=== PATIENT | male | born 1955 | race American Indian/Alaskan Native ===

== ENCOUNTER 2017-04-29 17:05 | Inpatient (IN) | payer OTHER ==
[2017-04-29] MEDS ORDERED: NACL 0.9% 500 ML 500 ML IV ONE (17:18)
[2017-04-29] MEDS ORDERED: TYLENOL PO STA (17:18)
[2017-04-29 17:59] LABS: Basophils % (Auto) 0.6 % (0.0-1.8); Eosinophils % (Auto) 0.1 % (0.0-4.3); Hematocrit 42.9 % (35.5-45.6); Hemoglobin 14.5 gm/dl (11.8-15.2); Mean Corpuscular HGB Conc 34 % (32-34); Mean Corpuscular Hemoglobin 25 pg (28-32); Mean Corpuscular Volume 75 fl (84-94); Platelet Count 114 K/mm3 (140-440); Red Blood Count 5.71 M/mm3 (3.65-5.03); Red Cell Distribution Width 22.2 % (13.2-15.2); White Blood Count 6.1 K/mm3 (4.5-11.0)
[2017-04-29 18:06] LABS: Bilirubin,Urine NEG (Negative); Blood,Urine MOD (Negative); Ketones,Urine NEG (Negative); Leukocyte Esterase,Urine NEG (Negative); Mucus,Urine FEW /HPF; Nitrite,Urine NEG (Negative)
[2017-04-29 18:08] LABS: INR 1.21 (0.87-1.13)
[2017-04-29 18:23] LABS: Anion Gap TNR mmol/L; Carbon Dioxide TNR mmol/L (22-30); Chloride TNR mmol/L (98-107); Potassium TNR mmol/L (3.6-5.0); Sodium TNR mmol/L (137-145)
[2017-04-29 18:24] LABS: BUN/Creatinine Ratio TNR; Blood Urea Nitrogen TNR mg/dL (9-20); Calcium TNR mg/dL (8.4-10.2); Glucose TNR mg/dL (75-100)
[2017-04-29 18:25] LABS: Alanine Aminotransferase TNR units/L (7-56); Albumin TNR g/dL (3.9-5); Albumin/Globulin Ratio TNR %; Alkaline Phosphatase TNR units/L (35-129); Bilirubin,Total TNR mg/dL (0.1-1.2); Total Protein TNR g/dL (6.3-8.2)
[2017-04-29] MEDS ORDERED: NACL 0.9% 1000 ML 1,000 ML ONE ×2 (18:29→22:14)
[2017-04-29 19:35] LABS: Sodium TNR mmol/L (137-145)
[2017-04-29 19:36] LABS: Anion Gap TNR mmol/L; Blood Urea Nitrogen TNR mg/dL (9-20); Carbon Dioxide TNR mmol/L (22-30); Chloride TNR mmol/L (98-107); Potassium TNR mmol/L (3.6-5.0)
[2017-04-29 19:39] LABS: BUN/Creatinine Ratio TNR; Glucose TNR mg/dL (75-100)
[2017-04-29 19:43] LABS: Calcium TNR mg/dL (8.4-10.2)
[2017-04-29 19:44] LABS: Alanine Aminotransferase TNR units/L (7-56); Bilirubin,Total TNR mg/dL (0.1-1.2)
[2017-04-29 19:45] LABS: Albumin TNR g/dL (3.9-5); Albumin/Globulin Ratio TNR %; Alkaline Phosphatase TNR units/L (35-129); Total Protein TNR g/dL (6.3-8.2)
[2017-04-29 21:04] LABS: Albumin 2.6 g/dL (3.9-5); Albumin/Globulin Ratio 0.8 %; Bilirubin,Total 0.7 mg/dL (0.1-1.2); Calcium 7.5 mg/dL (8.4-10.2); Chloride 103.9 mmol/L (98-107); Total Protein 5.7 g/dL (6.3-8.2)
--- NOTE | 2017-04-29 22:04 | Emergency Department Report ---
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 Associated Symptoms: diaphoresis, muscle aches, weakness ED Review of Systems ROS: Stated complaint: HIGH FEVER Other details as noted in HPI Constitutional: chills, fever, malaise Eyes: denies: eye pain, eye discharge, vision change ENT: denies: ear pain, throat pain Respiratory: denies: cough, shortness of breath, wheezing Cardiovascular: denies: chest pain, palpitations Endocrine: no symptoms reported Gastrointestinal: denies: abdominal pain, nausea, diarrhea Genitourinary: denies: urgency, dysuria Musculoskeletal: denies: back pain, joint swelling, arthralgia Skin: denies: rash, lesions Neurological: denies: headache, weakness, paresthesias Psychiatric: denies: anxiety, depression Hematological/Lymphatic: denies: easy bleeding, easy bruising ED Past Medical Hx - Past Medical History Previous Medical History?: Yes Hx Hypertension: Yes Hx CVA: No Hx Heart Attack/AMI: No Hx Congestive Heart Failure: No Hx Diabetes: No Hx Deep Vein Thrombosis: No Hx Pulmonary Embolism: No Hx GERD: No Hx Liver Disease: No Hx Renal Disease: No Hx of Cancer: No Hx Sickle Cell Disease: No Hx Arthritis: No Hx Headaches / Migraines: No Hx Seizures: No Hx Kidney Stones: No Hx Psychiatric Treatment: No Hx Asthma: No Hx COPD: No - Surgical History Past Surgical History?: No - Social History Smoking Status: Never Smoker ED Physical Exam - General Limitations: No Limitations General appearance: alert, in no apparent distress - Head Head exam: Present: atraumatic, normocephalic - Eye Eye exam: Present: normal appearance - ENT ENT exam: Present: mucous membranes moist - Neck Neck exam: Present: normal inspection - Respiratory Respiratory exam: Present: normal lung sounds bilaterally. Absent: respiratory distress - Cardiovascular Cardiovascular Exam: Present: regular rate, normal rhythm, tachycardia. Absent : systolic murmur, diastolic murmur, rubs, gallop - GI/Abdominal GI/Abdominal exam: Present: soft, normal bowel sounds - Rectal Rectal exam: Present: deferred - Extremities Exam Extremities exam: Present: normal inspection - Back Exam Back exam: Present: normal inspection - Neurological Exam Neurological exam: Present: alert, oriented X3 - Psychiatric Psychiatric exam: Present: normal affect, normal mood - Skin Skin exam: Present: warm, dry, intact, normal color. Absent: rash ED Course Vital Signs 04/29/17 04/29/17 04/29/17 17:12 17:15 17:16 Temperature 103 F H Pulse Rate 120 H 126 H Respiratory 50 H 22 Rate Blood Pressure 120/70 126/62 O2 Sat by Pulse 97 96 96 Oximetry 04/29/17 04/29/17 04/29/17 17:31 17:33 17:45 Temperature Pulse Rate 118 H 126 H 117 H Respiratory 49 H 46 H Rate Blood Pressure 120/70 120/70 O2 Sat by Pulse 96 Oximetry 04/29/17 04/29/17 04/29/17 18:00 18:15 18:18 Temperature 100.3 F H Pulse Rate 108 H 107 H Respiratory 47 H 45 H Rate Blood Pressure 113/77 O2 Sat by Pulse Oximetry 04/29/17 04/29/17 04/29/17 18:31 18:45 19:01 Temperature Pulse Rate 104 H 100 H 97 H Respiratory 44 H 24 37 H Rate Blood Pressure O2 Sat by Pulse Oximetry 04/29/17 04/29/17 04/29/17 19:15 19:31 19:45 Temperature Pulse Rate 90 91 H 92 H Respiratory 29 H 27 H 30 H Rate Blood Pressure O2 Sat by Pulse 96 94 95 Oximetry 04/29/17 04/29/17 04/29/17 19:53 20:01 20:19 Temperature Pulse Rate 94 H Respiratory 26 H 18 Rate Blood Pressure O2 Sat by Pulse 97 96 97 Oximetry - Reevaluation(s) Reevaluation #1: 04/29/17 22:03 Patient came in tachycardic and febrile. Has improved temperature and HR. Lactic acid was 3.3 and appeared sick. - Consultations Consultation #1: 04/29/17 22:09 Dr. Benavidez consulted to admit patient to hospitalist service. ED Medical Decision Making - Lab Data Result diagrams: 04/29/17 17:39 04/29/17 20:12 - EKG Data EKG shows normal: sinus rhythm, QRS complexes (Normal QRS), ST-T waves (No ST segment changes.) Rate: tachycardia - EKG Data When compared to previous EKG there are: previous EKG unavailable Interpretation: normal EKG - Radiology Data Radiology results: pending - Medical Decision Making Patient improved with HR and fever but has elevated lactic acid and last BP was in the 90s/40s. We are giving more fluids. Will admit patient as he appears sick. His parasitemia is 2%. Critical care attestation.: If time is entered above; I have spent that time in minutes in the direct care of this critically ill patient, excluding procedure time. ED Disposition Clinical Impression: Parasite infection, Sepsis associated hypotension, Malaria Disposition: OP ADMIT IP TO THIS HOSP Is pt being admited?: Yes Does the pt Need Aspirin: No Condition: Stable Time of Disposition: 22:09
[2017-04-29] MEDS ORDERED: NACL 0.9% 1000 ML 1,000 ML IV ONE (22:23)
[2017-04-29] MEDS ORDERED: ZOFRAN IV PRN (23:44)
[2017-04-29] MEDS ORDERED: TYLENOL PO PRN (23:45)
--- NOTE | 2017-04-30 05:51 | History and Physical Report ---
CHIEF COMPLAINT: Fever. HISTORY OF PRESENT ILLNESS: The patient is a 61-year-old male who recently came back from [facility]. He said he has been having fever that occurs intermittently. There is also associated history of muscle aches, weakness, diaphoresis. The patient's fever was as high as 102 degrees Fahrenheit. There is no history of nausea, vomiting and there was also no history of headache, cough, shortness of breath or chest pain. PAST MEDICAL HISTORY: Pertinent for hypertension. FAMILY HISTORY: Noncontributory. SOCIAL HISTORY: The patient does not smoke, does not drink alcohol and does not use illicit drugs. MEDICATIONS: The patient's home medications are not known. ALLERGIES: There are no known drug allergies. REVIEW OF SYSTEMS: CONSTITUTIONAL: There is fever. There is chills and there is diaphoresis. HEENT: There is no headache or sore throat. CARDIOVASCULAR SYSTEM: There is no chest pain, orthopnea. RESPIRATORY: There is no shortness of breath or cough. GASTROINTESTINAL SYSTEM: There is no nausea, no vomiting, no abdominal pain, diarrhea or constipation. NEUROLOGICAL SYSTEM: There is no numbness, no dizziness, no altered mental status. MUSCULOSKELETAL SYSTEM: There is no joint pain or swelling. DERMATOLOGICAL SYSTEM: Reveal no skin rash or itching. GENITOURINARY SYSTEM: Showed no dysuria, hematuria or flank pain. Rest of the system review is normal. PHYSICAL EXAMINATION: GENERAL: At the time of exam, the patient was found to be alert, oriented x 3 and not in acute distress. VITAL SIGNS: The patient's vital signs show blood pressure of 116/51 with O2 sat of 98%, the patient's temperature was found to be 103 degrees Fahrenheit with pulse of 126. HEENT: Shows pupils to be equal, round, reactive to light and accommodation. Extraocular muscles are intact. NECK: Supple with no JVD or carotid bruit. CARDIOVASCULAR SYSTEM: Show first and second heart sounds with no gallops or murmur. RESPIRATORY SYSTEM: Show good air entry on both sides of the lung with no abnormal breath sounds. GASTROINTESTINAL SYSTEM: Show abdomen to be full, soft, nontender with no organomegaly or rigidity. NEUROLOGICAL: Shows no focal deficit. MUSCULOSKELETAL: Show no joint swelling or tenderness. DERMATOLOGICAL: Showing no skin rash. GENITOURINARY: Showing no costovertebral angle tenderness. PERTINENT LABORATORY DATA AND IMAGING STUDIES: The patient has a chest x-ray done that shows right hilar opacity. The patient's lab results shows a CBC with normal white count, normal hemoglobin and normal hematocrit with low platelet of 114. CBC differential showed elevated segmented neutrophils of 80.7% with no significant band. The patient's blood screening was noted to have shown some plasmodium organism highly suspicious for malaria. The patient's chemistry shows low CO2 of 20, elevated lactic acid of 3.3 with repeat lactic acid coming down to normal value of 1.9. Calcium level was low with a value of 7.5 with correspondingly low albumin of 2.6. Urinalysis was unremarkable. DIAGNOSES: 1. Systemic inflammatory response syndrome. 2. Malaria. PLAN: The patient will be admitted to medical floor on telemetry and will be on continuous cardiac monitoring. The patient will be on Tylenol 650 mg every 4 hours for fever and headache and will be on atovaquone/proguanil or Malarone one combined tablet daily for 3 days. The patient will also be on ceftriaxone 1 gram daily and will be given as treatment for systemic inflammatory response syndrome. DVT prophylaxis will be provided by heparin 5000 units subQ q. 12 hours. The patient will be on IV normal saline at 150 mL an hour and will be on IV Zofran 4 mg every 8 hours as needed for nausea and vomiting. The patient's home medications will be reconciled and started when they are known. JOB# [id number] OCN/LELO MTDYousuf
--- NOTE | 2017-04-30 09:05 | XRay Report ---
AP CHEST: HISTORY: Sepsis AP view of the chest demonstrates a normal mediastinal and cardiac contour with clear lungs and normal bony and soft tissue structures. IMPRESSION: Unremarkable AP chest.
[2017-04-30] MEDS: ROCEPHIN/NS 1 GM/50 ML 1 GM/50 ML BAG IV SCH (10:50)
[2017-04-30] MEDS: NACL 0.9% 1000 ML 1,000 ML IV SCH ×2 (10:50→21:35)
[2017-04-30] MEDS: HEPARIN SUB-Q SCH ×2 (10:51→21:35)
[2017-04-30] MEDS: MALARONE PO SCH (12:24)
--- NOTE | 2017-04-30 20:16 | Progress Note ---
Assessment and Plan - SIIR: Fever right was an elevated lactic acid level. No cough or no nasal congestion. He came back from a recent trip to [facility]. Did not take any malaria prophylaxis prior to problem - Malaria: On Atovaquone/Proguanil 4 tabsqd x 3 days. Iv hydration. F/u with blood smear DVT: PPx with Subjective Date of service: 04/30/17 Principal diagnosis: SIIRS, Malaria Interval history: Intermittent fever with rigors. No nausea no vomiting Objective - Constitutional Vitals: Vital Signs - 12hr 04/30/17 20:07 Temperature 100.4 F H Pulse Rate 87 Respiratory 18 Rate Blood Pressure 127/65 [Right] General appearance: Present: no acute distress, well-nourished - EENT Eyes: PERRL, EOM intact - Neck Neck: supple, normal ROM - Respiratory Respiratory: bilateral: CTA - Cardiovascular Rhythm: regular Heart Sounds: Present: S1 & S2. Absent: gallop, rub Extremities: pulses intact, No edema, normal color, Full ROM - Gastrointestinal General gastrointestinal: Present: soft, non-tender, non-distended, normal bowel sounds - Integumentary Integumentary: clear, warm, dry - Musculoskeletal Musculoskeletal: 1, strength equal bilaterally - Neurologic Neurologic: moves all extremities - Psychiatric Psychiatric: memory intact, appropriate mood/affect, intact judgment & insight - Labs CBC & Chem 7: 04/29/17 17:39 04/29/17 20:12
[2017-05-01] MEDS: D5/0.45NS 1,000 ML IV SCH ×2 (04:12→21:52)
[2017-05-01] MEDS: ROCEPHIN/NS 1 GM/50 ML 1 GM/50 ML BAG IV SCH (10:53)
--- NOTE | 2017-05-01 10:53 | Consultation ---
History of Present Illness - Reason for Consult Consult date: 05/01/17 fever in the returning traveler Requesting physician: AZAR ALDRIDGE - History of Present Illness 61 years old male with history of admitted on 04/29/2017 due to7-day history of fever and chills. Patient came from [facility] on 04/28/2017. Patient goes every year to [facility] to visit family. Patient stayed 2 weeks in [facility]. Patient did not take any malaria prophylaxis. Patient reports that fever started 2 days before coming back to [facility]. Fever is daily associated with chills/rigors. Patient denies headaches, upper respiratory symptoms, cough , shortness of breath. Patient denies nausea, vomiting or diarrhea. In the emergency room, initial temperature was 103, heart rate 120, respiration 50, blood pressure 120/70. Initial white count was 6.1. Hemoglobin 14.4. Platelets 114. Creatinine 1.5. Lactic acid 3.3. UA was negative. Malaria smear was positive 2% Plasmodium falciparum. Microbiology: Blood cultures: 04/29 ngtd Urine cultures: 04/29 neg Malaria smear: 04/29 Plasmodium falciparum 2% Current Antimicrobials: malarone 04/30 ceftriaxone 04/30 Past History Past Medical History: No medical history Past Surgical History: No surgical history Social history: , alcohol abuse. denies: smoking, prescription drug abuse, IV drug use Family history: no significant family history Medications and Allergies Allergies Allergy/AdvReac Type Severity Reaction Status Date / Time No Known Allergies Allergy Unverified 04/29/17 17:18 Home Medications Medication Instructions Recorded Confirmed Last Taken Type No Known Home Medications [No 05/01/17 05/01/17 Unknown History Reported Home Medications] Active Meds: Active Medications Acetaminophen (Tylenol) 650 mg PO Q4H PRN PRN Reason: Fever Last Admin: 04/30/17 18:56 Dose: 650 mg Atovaquone/Proguanil (Malarone 250-100 Mg (Nf)) 4 each PO QDAY SMOOTH Stop: 05/02/17 10:01 Last Admin: 04/30/17 12:24 Dose: 4 each Heparin Sodium (Porcine) (Heparin) 5,000 unit SUB-Q Q12HR SMOOTH Last Admin: 04/30/17 21:35 Dose: 5,000 unit Ceftriaxone Sodium (Rocephin/Ns 1 Gm/50 Ml) 1 gm in 50 mls @ 100 mls/hr IV Q24HR SMOOTH PRN Reason: Protocol Last Admin: 04/30/17 10:50 Dose: 100 mls/hr Sodium Chloride (Nacl 0.9% 1000 Ml) 1,000 mls @ 150 mls/hr IV DIRECT SMOOTH Last Admin: 04/30/17 21:35 Dose: 150 mls/hr Dextrose/Sodium Chloride (D5/0.45ns) 1,000 mls @ 150 mls/hr IV DIRECT SMOOTH Last Admin: 05/01/17 04:12 Dose: 150 mls/hr Ondansetron HCl (Zofran) 4 mg IV Q8H PRN PRN Reason: Nausea And Vomiting Review of Systems All systems: negative (fever, chills, rigors) Physical Examination - Physical Exam Narrative exam: General appearance: Alert in NAD, conversant Eyes: anicteric sclerae, moist conjunctivae; no lid-lag; PERRLA HENT: Atraumatic; oropharynx clear with moist mucous membranes and no mucosal ulcerations/no oral thrush; normal hard and soft palate. Normal external ears. Neck: Trachea midline; supple, no thyromegaly or lymphadenopathy Lungs: CTA, with normal respiratory effort and no intercostal retractions CV: RRR, no murmurs Abdomen: Soft, non-tender; no masses or hepatosplenomegaly Extremities: No peripheral edema or extremity lymphadenopathy Skin: Normal temperature, turgor and texture; no rash, ulcers or subcutaneous nodules Psych: Appropriate affect, alert and oriented to person, place and time. Neuro: alert and oriented x 3. Moving all extermities Lines: No CVL / PICC - Constitutional Vitals: Vital Signs Temp Pulse Resp BP Pulse Ox 100.2 F H 82 16 119/75 98 05/01/17 04:46 05/01/17 04:46 05/01/17 04:46 05/01/17 04:46 05/01/17 04:46 Temperature -Last 24 Hours Temperature 100.2 F Temperature 98.7 F Temperature 100.4 F Temperature 100.4 F Temperature 101.1 F Results - Labs CBC & Chem 7: 04/29/17 17:39 04/29/17 20:12 Assessment and Plan Assessment: 1) Sepsis: Present on admission, manifested by fever, tachycardia, increased lactate. Etiology - malaria. 2) Uncomplicated Plasmodium falciparum malaria: patient came from [facility] on 04/28/17 after 2 weeks. He did not take malaria prophylaxis. -Malaria smear + 2% for P. falciparum 3) Low platelets: from malaria Plan: -follow-up blood cultures -continue malarone (atovaquone/proguanil) 4 tab (1000/400 mg) PO daily for 3 days -daily malaria smear until clears -IV fluids -educated about compliance of malaria prophylaxis when traveling to [place]. Thank you Dr Aldridge for your consultation, will follow up with you. Meggan Stoll MD Infectious Diseases Specialist [facility] [place] ([facility] M [phone] O [phone]
[2017-05-01] MEDS: HEPARIN SUB-Q SCH ×2 (11:00→21:52)
[2017-05-01] MEDS ORDERED: CITRATE OF MAGNESIA PO ONE (12:45)
--- NOTE | 2017-05-01 17:58 | Progress Note ---
Assessment and Plan Assessment and Plan 1. SIRS: Fever with elevated lactic acid level. Patient came back from a recent trip to [facility] and did not take any malaria prophylaxis prior. Blood smear positive for plasmodium falciparum. 2. Malaria-Plasmodium Falciparum: On Atovaquone/Proquanil 4 tabs qd x 3 days. IV hydration. ID following. 3. UTI: On IV Rocephin. 4. DVT PPx with on Heparin. Subjective Date of service: 05/01/17 Principal diagnosis: SIIRS, Malaria Interval history: Intermittent fever with rigors. No N/V. Objective - Constitutional Vitals: Vital Signs - 12hr 05/01/17 09:32 Temperature 101.3 F H Pulse Rate 92 H Respiratory 20 Rate Blood Pressure 133/70 O2 Sat by Pulse 99 Oximetry General appearance: Present: no acute distress, well-nourished - EENT Eyes: PERRL, EOM intact ENT: hearing intact, clear oral mucosa Ears: bilateral: normal - Neck Neck: supple, normal ROM - Respiratory Respiratory effort: normal Respiratory: bilateral: CTA - Breasts Breasts: normal - Cardiovascular Rhythm: regular Heart Sounds: Present: S1 & S2. Absent: gallop, rub Extremities: pulses intact, No edema, normal color, Full ROM - Gastrointestinal General gastrointestinal: Present: soft, non-tender, non-distended, normal bowel sounds - Genitourinary Male genitourinary: normal - Integumentary Integumentary: clear, warm, dry - Musculoskeletal Musculoskeletal: 1, strength equal bilaterally - Neurologic Neurologic: moves all extremities - Psychiatric Psychiatric: memory intact, appropriate mood/affect, intact judgment & insight - Labs CBC & Chem 7: 04/29/17 17:39 04/29/17 20:12
[2017-05-01] MEDS ORDERED: ATIVAN IV PRN (18:27)
[2017-05-01] MEDS: MALARONE PO SCH (22:39)
[2017-05-02 06:26] LABS: Hematocrit 33.9 % (35.5-45.6); Hemoglobin 11.6 gm/dl (11.8-15.2); Mean Corpuscular HGB Conc 34 % (32-34); Mean Corpuscular Volume 75 fl (84-94); Red Blood Count 4.55 M/mm3 (3.65-5.03); White Blood Count 4.8 K/mm3 (4.5-11.0)
[2017-05-02 06:27] LABS: Mean Corpuscular Hemoglobin 25 pg (28-32); Platelet Count 96 K/mm3 (140-440); Red Cell Distribution Width 22.4 % (13.2-15.2)
[2017-05-02 06:36] LABS: Alanine Aminotransferase 36 units/L (7-56); Albumin 2.5 g/dL (3.9-5); Albumin/Globulin Ratio 0.7 %; Alkaline Phosphatase 55 units/L (35-129); Anion Gap 14 mmol/L; BUN/Creatinine Ratio 8; Blood Urea Nitrogen 9 mg/dL (9-20); Calcium 7.8 mg/dL (8.4-10.2); Carbon Dioxide 23 mmol/L (22-30); Chloride 102.8 mmol/L (98-107); Glucose 113 mg/dL (75-100); Potassium 3.8 mmol/L (3.6-5.0); Sodium 136 mmol/L (137-145)
[2017-05-02 07:53] LABS: Blastocytes % (Manual) 0 %
[2017-05-02 07:54] LABS: Anisocytosis 1+; Basophils % (Manual) 0 % (0.0-1.8); Eosinophils % (Manual) 0 % (0.0-4.3); Hypochromasia 1+; Platelet Estimate Consistent w Auto; Target Cells 1+
[2017-05-02 07:55] LABS: Diff Status Complete
--- NOTE | 2017-05-02 11:07 | Progress Note ---
Assessment and Plan Assessment: 1) Sepsis: Present on admission, manifested by fever, tachycardia, increased lactate. Etiology - malaria. 2) Uncomplicated Plasmodium falciparum malaria: patient came from [facility] on 04/28/17 after 2 weeks. He did not take malaria prophylaxis. -Malaria smear + 2% for P. falciparum 3) Low platelets: from malaria Plan: -parasite smear today -continue malarone (atovaquone/proguanil) 4 tab (1000/400 mg) PO daily for 3 days -educated about compliance of malaria prophylaxis when traveling to [place]. -if smear is negative ok to d/c home I am signing off Thank you Dr Cline for your consultation, will follow up with you. Meggan Stoll MD Infectious Diseases Specialist [facility] ([facility] M [phone] O [phone] Subjective Date of service: 05/02/17 Principal diagnosis: SIIRS, Malaria Interval history: Feels remarkably much better, no rigors. fever trending down. Microbiology: Blood cultures: 04/29 ngtd Urine cultures: 04/29 neg Malaria smear: 04/29 Plasmodium falciparum 2% Current Antimicrobials: malarone 04/30 ceftriaxone 04/30 Objective - Exam Narrative Exam: General appearance: Alert in NAD, conversant Eyes: anicteric sclerae, moist conjunctivae; no lid-lag; PERRLA HENT: Atraumatic; oropharynx clear with moist mucous membranes and no mucosal ulcerations/no oral thrush; normal hard and soft palate. Normal external ears. Neck: Trachea midline; supple, no thyromegaly or lymphadenopathy Lungs: CTA, with normal respiratory effort and no intercostal retractions CV: RRR, no murmurs Abdomen: Soft, non-tender; no masses or hepatosplenomegaly Extremities: No peripheral edema or extremity lymphadenopathy Skin: Normal temperature, turgor and texture; no rash, ulcers or subcutaneous nodules Psych: Appropriate affect, alert and oriented to person, place and time. Neuro: alert and oriented x 3. Moving all extermities Lines: No CVL / PICC - Constitutional Vitals: Vital Signs Temp Pulse Resp BP Pulse Ox 98.6 F 68 16 126/78 98 05/02/17 07:33 05/02/17 07:33 05/02/17 07:33 05/02/17 07:33 05/02/17 07:33 Temperature -Last 24 Hours Temperature 98.6 F Temperature 99.1 F Temperature 98.4 F Temperature 101.1 F Temperature 101.1 F - Labs CBC & Chem 7: 05/02/17 05:51 05/02/17 05:51 Labs: Abnormal lab results 05/02/17 05/02/17 Range/Units 05:51 05:51 Hgb 11.6 L (11.8-15.2) gm/dl Hct 33.9 L D (35.5-45.6) % MCV 75 L (84-94) fl MCH 25 L (28-32) pg RDW 22.4 H (13.2-15.2) % Plt Count 96 L (140-440) K/mm3 Monocytes % (Manual) 17.0 H (0.0-7.3) % Lymphocytes # (Manual) 1.0 L (1.2-5.4) K/mm3 Sodium 136 L (137-145) mmol/L Glucose 113 H (75-100) mg/dL Calcium 7.8 L (8.4-10.2) mg/dL Phosphorus 1.70 L (2.5-4.5) mg/dL AST 65 H (5-40) units/L Total Protein 6.0 L (6.3-8.2) g/dL Albumin 2.5 L (3.9-5) g/dL
[2017-05-02 11:22] VITALS: BP 139/75
--- NOTE | 2017-05-02 13:18 | Discharge Summary ---
Providers - Providers Date of Admission: 04/29/17 23:41 Attending physician: CHRISTINE PARADA MD 04/30/17 20:21 Consult to Physician [CONS] Routine Consulting Provider: ANGELA ZHOU Reason For Exam: Malaria Place consult to:: Norris Was contact made?: No Primary care physician: HEARING HEALTH TECHNICIAN Hospitalization Reason for admission: fever Condition: Stable Hospital course: Patient is a 61 year old male hx of HTN presenting with Fever after returning from [facility] area. The patient's fever was as high as 102. I was diagnosed with malaria confirmed by microbiology. Patient was started on Malarone 4 tabs daily 3 days of IV hydration. Physiatric infection the patient was also placed on Rocephin. Prior to discharge the patient had him on Aranesp now 0.05 which is less than the 2% when he came back. He is to complete the Malarone a follow-up with ID outpatient. 1. Sepsis secondary to malaria Blood smear positive for plasmodium falciparum. 2. Malaria-Plasmodium Falciparum 3. UTI 4. Low platelets: from malaria Disposition: DC- TO HOME OR SELFCARE Time spent for discharge: 35 MINS Core Measure Documentation - Palliative Care Palliative Care/ Comfort Measures: Not Applicable - Core Measures Any of the following diagnoses?: none - VTE Discharge Requirements Deep Vein Thrombosis/Pulmonary Embolism Present on Admission: No Exam - Physical Exam Narrative exam: VITAL SIGNS: Reviewed. GENERAL: The patient appeared well nourished and normally developed. Vital signs as documented. HEAD: No signs of head trauma. EYES: Pupils are equal. Extraocular motions intact. EARS: Hearing grossly intact. MOUTH: Oropharynx is normal. NECK: No adenopathy, no JVD. CHEST: Chest with clear breath sounds bilaterally. No wheezes, rales, or rhonchi. CARDIAC: Regular rate and rhythm. S1 and S2, without murmurs, gallops, or rubs. VASCULAR: No Edema. Peripheral pulses normal and equal in all extremities. ABDOMEN: Soft, without detectable tenderness. No sign of distention. No rebound or guarding, and no masses palpated. Bowel Sounds normal. MUSCULOSKELETAL: Good range of motion of all major joints. Extremities without clubbing, cyanosis or edema. NEUROLOGIC EXAM: Alert and oriented x 3. No focal sensory or strength deficits. Speech normal. Follows commands. PSYCHIATRIC: Mood normal. SKIN: No rash or lesions. - Constitutional Vitals: Temp Pulse Resp BP Pulse Ox 98.5 F 67 18 139/75 99 05/02/17 11:19 05/02/17 11:19 05/02/17 11:19 05/02/17 11:19 05/02/17 11:19 Plan Activity: no restrictions, advance as tolerated, fall precautions Diet: regular Special Instructions: record daily weights Follow up with: PRIMARY MD PANFILO [Primary Care Provider] - 7 Days ANGELA ZHOU MD [Staff Physician] - 7 Days Prescriptions: Atovaquone/Proguanil HCl [Malarone 250-100 mg] 4 each PO DAILY #1 tab
== END 2017-05-02 15:35 | disposition home or self-care (01) | DRG 871 ==
LOC: ED 17:05 → 4A 23:41
PROVIDERS: ADMIT Internal Medicine; ATTEND Internal Medicine
DX: A41.9 Sepsis, unspecified organism (principal); E43 Unspecified severe protein-calorie malnutrition; B50.9 Plasmodium falciparum malaria, unspecified; N39.0 Urinary tract infection, site not specified; E86.0 Dehydration; Z68.32 Body mass index [BMI] 32.0-32.9, adult
CPT/HCPCS: 36415; 71010; 80053; 81001; 82140; 82805; 83735; 84100; 85007; 85025; 85610; 87040; 87086; 87207; 93005; 93010; 96360; J0696; J1644; J7030; J7040

== ENCOUNTER 2017-07-10 12:13 | Emergency (ER) | payer OTHER ==
[2017-07-10 13:18] LABS: Anion Gap 18 mmol/L; BUN/Creatinine Ratio 15; Blood Urea Nitrogen 16 mg/dL (9-20); Calcium 8.6 mg/dL (8.4-10.2); Carbon Dioxide 23 mmol/L (22-30); Glucose 130 mg/dL (75-100); Potassium 4.1 mmol/L (3.6-5.0); Sodium 138 mmol/L (137-145)
[2017-07-10 13:18] LABS: Basophils % (Auto) 0.5 % (0.0-1.8); Eosinophils % (Auto) 2.5 % (0.0-4.3); Hematocrit 45.5 % (35.5-45.6); Hemoglobin 15.2 gm/dl (11.8-15.2); Mean Corpuscular HGB Conc 34 % (32-34); Mean Corpuscular Hemoglobin 28 pg (28-32); Mean Corpuscular Volume 83 fl (84-94); Platelet Count 267 K/mm3 (140-440); Red Blood Count 5.47 M/mm3 (3.65-5.03); Red Cell Distribution Width 17.4 % (13.2-15.2); White Blood Count 4.8 K/mm3 (4.5-11.0)
[2017-07-10 13:49] VITALS: BP 122/75
[2017-07-10] MEDS ORDERED: NACL 0.9% 1000 ML 1,000 ML ONE (14:43)
--- NOTE | 2017-07-10 16:57 | Emergency Department Report ---
ED Chest Pain HPI - General Chief Complaint: Chest Pain Stated Complaint: CP Time Seen by Provider: 07/10/17 16:24 Source: patient Mode of arrival: Ambulatory Limitations: No Limitations - History of Present Illness Initial Comments: This is a 61-year-old -[place] male presents to the emergency department with complaint of having a rapid heartbeat and palpitations for a very short amount of time that occurred 3 weeks ago. He saw his physician, Dr. Mahajan, on Friday and says that he was told that everything looked fine with this EKG at the time but he was not sure what was "going on inside" and that he should get a stress test and/or echocardiogram done. It sounds like he contacted the cardiology service and was told that it would be about a week until he could be worked in. The patient was concerned as he says he is traveling soon and wanted to get this taken care of so he came to the emergency department. He denies ever having any chest pain, shortness of breath, lower extremity swelling, fever. He has a past medical history of hypertension. He is not a smoker and denies illicit drug use. He denies any family history of early cardiac events or disease. Severity scale (0 -10): 0 - Related Data Previous Rx's Medication Instructions Recorded Last Taken Type Atovaquone/Proguanil HCl [Malarone 4 each PO DAILY #1 tab 05/02/17 Unknown Rx 250-100 mg] Allergies Allergy/AdvReac Type Severity Reaction Status Date / Time No Known Allergies Allergy Unverified 04/29/17 17:18 Heart Score - HEART Score History: Slightly suspicious EKG: Non-specific Age: < 45 Risk factors: 1-2 risk factors Troponin: < normal limit HEART Score: 2 - Critical Actions Critical Actions: 0-3 pts:0.9-1.7%risk of adverse cardiac event.Candidate for discharge ED Review of Systems ROS: Stated complaint: CP Other details as noted in HPI Comment: All other systems reviewed and negative Constitutional: denies: chills, fever Eyes: denies: eye pain, eye discharge, vision change ENT: denies: ear pain, throat pain Respiratory: denies: cough, shortness of breath, wheezing Cardiovascular: palpitations (3 weeks ago). denies: chest pain Gastrointestinal: denies: abdominal pain, nausea, diarrhea Genitourinary: denies: urgency, dysuria Musculoskeletal: denies: back pain, joint swelling, arthralgia Skin: denies: rash, lesions Neurological: denies: headache, weakness, paresthesias ED Past Medical Hx - Past Medical History Hx Hypertension: Yes Hx CVA: No Hx Heart Attack/AMI: No Hx Congestive Heart Failure: No Hx Diabetes: No Hx Deep Vein Thrombosis: No Hx Pulmonary Embolism: No Hx GERD: No Hx Liver Disease: No Hx Renal Disease: No Hx Sickle Cell Disease: No Hx Arthritis: No Hx Headaches / Migraines: No Hx Seizures: No Hx Kidney Stones: No Hx Psychiatric Treatment: No Hx Asthma: No Hx COPD: No - Surgical History Past Surgical History?: No - Social History Smoking Status: Never Smoker Substance Use Type: Alcohol - Medications Home Medications: Home Medications Medication Instructions Recorded Confirmed Last Taken Type Atovaquone/Proguanil HCl [Malarone 4 each PO DAILY #1 tab 05/02/17 Unknown Rx 250-100 mg] ED Physical Exam - General Limitations: No Limitations - Other Other exam information: GENERAL: The patient is well-developed well-nourished. HENT: Normocephalic. Atraumatic. Patient has moist mucous membranes. EYES: Extraocular motions are intact. Pupils equal reactive to light bilaterally. NECK: Supple. Trachea is benign. CHEST/LUNGS: Clear to auscultation. There is no respiratory distress noted. HEART/CARDIOVASCULAR: Regular. There is no tachycardia. There is no murmur. ABDOMEN: Abdomen is soft, nontender. Patient has normal bowel sounds. There is no abdominal distention. SKIN: Skin is warm and dry. NEURO: The patient is awake, alert, and oriented. The patient is cooperative. The patient has no focal neurologic deficits. The patient has normal speech. MUSCULOSKELETAL: There is no tenderness or deformity. There is no limitation range of motion. There is no evidence of acute injury. ED Course Vital Signs 07/10/17 07/10/17 12:24 13:47 Temperature 98.4 F 98.4 F Pulse Rate 82 98 H Respiratory 17 18 Rate Blood Pressure 135/69 Blood Pressure 122/75 [Right] O2 Sat by Pulse 96 100 Oximetry - Consultations Consultation #1: 07/10/17 17:38 I spoke to the tube lancer wardrobe consultant for Dr Mahajan, Dr Orona, feels it is appropriate for the patient be discharged home and that he should call tomorrow for a possible appointment. AUTUMN score - Autumn Score Age > 65: (0) No Aspirin use within the Past 7 Days: (0) No 3 or more CAD Risk Factors: (0) No 2 or more Angina events in past 24 hrs: (0) No Known CAD with more than 50% Stenosis: (0) No Elevated Cardiac Markers: (0) No ST Deviation Greater than 0.5mm: (0) No AUTUMN Score: 0 ED Medical Decision Making - Lab Data Result diagrams: 07/10/17 12:36 07/10/17 12:34 - EKG Data -: EKG Interpreted by Me EKG shows normal: sinus rhythm, axis, intervals, QRS complexes, ST-T waves (Non- specific ST_T waves) - EKG Data When compared to previous EKG there are: no significant change Interpretation: unchanged when compared t (04/29/17), nonspecific ST-T wave lucille - Radiology Data Radiology results: image reviewed interpreted by me: Chest x-ray does not show any acute process. There are no pleural effusions, obvious pneumonia and there is no pneumothorax. - Medical Decision Making The patient last had any symptoms of his palpitations 3 weeks ago. He does not have any chest pain or shortness of breath. He has had negative troponins 2. His EKG does not appear consistent with STEMI, ischemia or dysrhythmia. Chest x -ray is unremarkable. Vital signs stable. I spoke with cardiology who agrees with the plan for discharge home and follow-up outpatient with them. He will return to the ER with any worsening of his symptoms or any acute distress. Critical Care Time: No Critical care attestation.: If time is entered above; I have spent that time in minutes in the direct care of this critically ill patient, excluding procedure time. ED Disposition Clinical Impression: Palpitations Disposition: DC-01 TO HOME OR SELFCARE Is pt being admited?: No Condition: Stable Instructions: Palpitations (ED) Additional Instructions: Please return to the emergency department with any worsening of her symptoms, any chest pain or shortness of breath, or any acute distress. Please call the cardiology office tomorrow for a appointment as soon as possible. Referrals: AD MAHAJAN MD [Staff Physician] - [facility] Time of Disposition: 17:39
--- NOTE | 2017-07-10 18:58 | XRay Report ---
FINAL REPORT EXAM: XR CHEST 1V AP HISTORY: CP TECHNIQUE: Frontal portable examination of the chest PRIORS: None FINDINGS: Limited examination due to prominent soft tissue attenuation. Left lung base partly obscured. There is no pulmonary consolidation, pleural effusion, or pneumothorax. The regional skeleton is without acute pathology. The cardiac silhouette size is slightly enlarged without evidence of vascular congestion or pulmonary edema. IMPRESSION: No acute cardiopulmonary disease in the visualized chest
== END 2017-07-10 17:53 | disposition home or self-care (01) ==
LOC: ED 12:13
DX: R00.2 Palpitations (principal); R00.0 Tachycardia, unspecified; I10 Essential (primary) hypertension
CPT/HCPCS: 36415; 71010; 80048; 84484; 85025; 93005; 93010; 99284; J7030

== ENCOUNTER 2018-04-16 15:49 | Outpatient (CLI) | payer OTHER ==
--- NOTE | 2018-04-16 16:26 | XRay Report ---
XRAY RIGHT HIP TWO VIEWS: 04/16/18 15:49:00 CLINICAL: Hip pain. FINDINGS: No fracture or dislocation.Mild diffuse osteopenia. Moderate osteoarthritis of both hips. Mild bilateral SI joint sclerosis. No erosions. The pelvic bones are intact. Multilevel degenerative disc disease of the lumbar spine. The bowel gas pattern is normal. Normal soft tissues. IMPRESSION: Moderate osteoarthritis.
--- NOTE | 2018-04-16 23:22 | XRay Report ---
FINAL REPORT PROCEDURE: XR SPINE LUMBOSACRAL 2-3V TECHNIQUE: Lumbar spine radiographs, including AP, lateral, and lumbosacral spot views. CPT 02849 HISTORY: SCIATICA COMPARISON: No prior studies are available for comparison. FINDINGS: Alignment: There is straightening of the lumbar spine. Vertebral body heights/Disk spaces: Vertebral height is normal. Mild degree narrowing of the disc spaces noted at L5-S1. Fracture(s): None. Facets: Normal. Bone mineralization: Marginal osteophytes formation is noted at all the lumbar levels. At L2-3 large degree marginal osteophyte formation is identified on the left.. IMPRESSION: No acute fracture Multilevel lumbar spondylosis in the form of marginal osteophyte formation. Degenerative disc disease at L5-S1.
== END 2018-04-16 15:50 | disposition home or self-care (01) ==
LOC: SPVIMAG 15:49
DX: M47.896 Other spondylosis, lumbar region (principal); M51.37 Other intervertebral disc degeneration, lumbosacral region; M16.11 Unilateral primary osteoarthritis, right hip; M16.12 Unilateral primary osteoarthritis, left hip; I10 Essential (primary) hypertension
CPT/HCPCS: 72100